=== PATIENT | female | born 1970 | race Two or more races ===

== ENCOUNTER 2016-12-03 20:51 | Emergency (ER) | payer BC ==
[2016-12-03 21:01] VITALS: BP 132/87
[2016-12-03] MEDS ORDERED: Cephalexin 500 MG Cap PO ONE (21:17)
[2016-12-03] MEDS ORDERED: Sulfamethoxazole/Trimethoprim 800-160 MG Tab PO ONE (21:17)
--- NOTE | 2016-12-03 21:24 | EDM.PDOC ---
ED HPI GENERAL MEDICAL PROBLEM - General Chief Complaint: Skin Complaint Stated Complaint: INFECTION UNDER RIGHT ARM PIT Time Seen by Provider: 12/03/16 21:05 Source of Information: Reports: Patient History Limitations: Reports: No Limitations - History of Present Illness INITIAL COMMENTS - FREE TEXT/NARRATIVE: Patient is a 46-year-old female presents ED complaining of a draining open wound to the right armpit. Patient states she has a history of MRSA. States she recently shaved her armpits developed what initially appeared to be a ingrown hair. States today after showering developed drainage from the site. He's been draining ever since. Pain is mild in nature. She denies any fever/chills, nausea /vomiting, or additional lesions to her body. She has not been on any antibiotics recently. Denies any additional complaints. 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: Psychiatric History: Reports: Depression - Infectious Disease History Infectious Disease History: Reports: Chicken Pox, MRSA - Past Surgical History HEENT Surgical History: Reports: Adenoidectomy, Tonsillectomy Social & Family History - Family History Oncologic: Reports: Brain, Breast - Tobacco Use Smoking Status *Q: Never Smoker Years of Tobacco use: 20 Packs/Tins Daily: 0.2 - Recreational Drug Use Recreational Drug Use: No Drug Use in Last 12 Months: No Recreational Drug Type: Reports: Opium - Living Situation & Occupation Living situation: Reports: Occupation: Employed ED ROS GENERAL - Review of Systems Review Of Systems: ROS reveals no pertinent complaints other than HPI. ED EXAM, SKIN/RASH Exam: See Below Exam Limited By: No Limitations General Appearance: Alert, WD/WN, No Apparent Distress Ears: Hearing Grossly Normal Nose: Normal Inspection Throat/Mouth: Normal Voice, No Airway Compromise Neck: Normal Inspection, Supple Respiratory/Chest: No Respiratory Distress, No Accessory Muscle Use Cardiovascular: Normal Peripheral Pulses, Regular Rate, Rhythm Peripheral Pulses: 2+: Radial (R) Extremities: Other (Approximate 3 cm burst 3 cm indurated area with a open area with yellow center. No draining present. Mild erythema around the borders. Pain with palpation. No lymphadenitis present.) Neurological: Alert, Oriented, Normal Cognition, No Motor/Sensory Deficits Psychiatric: Normal Affect, Normal Mood Skin: Warm, Dry Course - Vital Signs Last Recorded V/S: Last Vital Signs Temp 97.9 F 12/03/16 20:59 Pulse 96 12/03/16 20:59 Resp 16 12/03/16 20:59 BP 132/87 12/03/16 20:59 Pulse Ox 96 12/03/16 20:59 - Orders/Labs/Meds Meds: Medications Discontinued Medications Generic Name Dose Route Start Last Admin Trade Name Freq PRN Reason Stop Dose Admin Cephalexin 500 mg 12/03/16 21:17 12/03/16 21:30 Keflex PO 12/03/16 21:18 500 mg ONETIME ONE Administration Cephalexin Confirm 12/03/16 21:44 Keflex Administered 12/03/16 21:45 Dose 500 mg .ROUTE .STK-MED ONE Ondansetron HCl 4 mg 12/03/16 21:38 12/03/16 21:43 Zofran Odt PO 12/03/16 21:39 4 mg ONETIME ONE Administration Trimethoprim/Sulfamethoxazole 1 tab 12/03/16 21:17 12/03/16 21:30 Septra Ds PO 12/03/16 21:18 1 tab ONETIME ONE Administration - Re-Assessments/Exams Free Text/Narrative Re-Assessment/Exam: Ordered Bactrim DS and Keflex by mouth. No purulent drainage to culture. We'll discharge patient home with instructions as documented. Prescriptions provided through [facility]. 12/03/16 21:38 Patient vomited right after taking the antibiotic. Ordered zofran 4mg ODT. Departure - Departure Time of Disposition: 21:21 Disposition: Home, Self-Care 01 Condition: Good Clinical Impression: Furuncle, Abscess, Multiple-resistant Staphylococcus aureus infection - Discharge Information Instructions: Abscess, MRSA Infection, Adult Referrals: Carlee Will PA [Primary Care Provider] - Forms: ED Department Discharge Additional Instructions: As discussed take the full 7 day course of antibiotics as prescribed. Utilize warm compresses 4-6 times daily, 30 minutes in duration, keep area covered with draining. Utilize good hand hygiene with current infection. Follow-up with PCP at conclusion of therapy to ensure resolution. Return to ED for any new or worsening symptoms. Utilize Tylenol and ibuprofen in alternating fashion for pain.
[2016-12-03] MEDS ORDERED: Ondansetron 4 MG Tab.DIS PO ONE (21:38)
[2016-12-03] MEDS ORDERED: Cephalexin 500 MG Cap ONE (21:44)
== END 2016-12-03 21:49 | disposition home or self-care (01) ==
LOC: JD.ED 20:51
DX: L02.423 Furuncle of right upper limb (principal); L02.413 Cutaneous abscess of right upper limb; B95.62 Methicillin resistant Staphylococcus aureus infection as the cause of diseases classified elsewhere; I10 Essential (primary) hypertension; Z87.440 Personal history of urinary (tract) infections; Z98.890 Other specified postprocedural states; F32.9 Major depressive disorder, single episode, unspecified
CPT/HCPCS: 99283; A9270

== ENCOUNTER 2017-02-12 09:36 | Emergency (ER) | payer BC ==
[2017-02-12 10:05] VITALS: BP 143/97
[2017-02-12] MEDS ORDERED: Cephalexin 500 MG Cap PO ONE (10:20)
--- NOTE | 2017-02-12 10:22 | EDM.PDOC ---
ED HPI GENERAL MEDICAL PROBLEM - General Chief Complaint: Genitourinary Problem Stated Complaint: POSS. BLADDER INFECTION Time Seen by Provider: 02/12/17 09:53 Source of Information: Reports: Patient History Limitations: Reports: No Limitations - History of Present Illness INITIAL COMMENTS - FREE TEXT/NARRATIVE: The patient is a 46-year-old female with a chief complaint of dysuria. States that she's had pain with urination for about 2 days. Also has some frequency. She's been taking Pyridium at home. No vomiting. Mild nausea, no abdominal pain. No flank pain. No fever or chills. No additional complaint. 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: Psychiatric History: Reports: Depression - Infectious Disease History Infectious Disease History: Reports: Chicken Pox, MRSA - Past Surgical History HEENT Surgical History: Reports: Adenoidectomy, Tonsillectomy GI Surgical History: Reports: Other (See Below) Social & Family History - Family History Oncologic: Reports: Brain, Breast - Tobacco Use Smoking Status *Q: Unknown Ever Smoked Years of Tobacco use: 20 Packs/Tins Daily: 0.2 - Recreational Drug Use Recreational Drug Use: No Drug Use in Last 12 Months: No Recreational Drug Type: Reports: Opium - Living Situation & Occupation Living situation: Reports: Occupation: Employed ED ROS GENERAL - Review of Systems Review Of Systems: See Below Constitutional: Reports: Malaise. Denies: Fever, Chills HEENT: Reports: No Symptoms Respiratory: Denies: Cough Cardiovascular: Denies: Chest Pain GI/Abdominal: Reports: Nausea. Denies: Abdominal Pain : Reports: Dysuria, Flank Pain ED EXAM, RENAL/ - Physical Exam Exam: See Below Exam Limited By: No Limitations General Appearance: Alert, WD/WN, No Apparent Distress Eye Exam: Bilateral Eye: Normal Inspection Ears: Normal External Exam Nose: Normal Inspection Throat/Mouth: Normal Inspection, Normal Oropharynx, Normal Voice Head: Atraumatic, Normocephalic Neck: Normal Inspection, Supple, Non-Tender, Full Range of Motion Respiratory/Chest: No Respiratory Distress, Lungs Clear, Normal Breath Sounds Cardiovascular: Normal Peripheral Pulses, Regular Rate, Rhythm, No Murmur GI/Abdominal: Soft, Non-Tender, No Distention. No: Rebound Back Exam: Normal Inspection. No: CVA Tenderness (L), CVA Tenderness (R) Neurological: Alert, Oriented, Normal Cognition, No Motor/Sensory Deficits Psychiatric: Normal Affect, Normal Mood Skin Exam: Warm, Dry, Intact, Normal Color, No Rash Course - Vital Signs Last Recorded V/S: Last Vital Signs Temp 36.9 C 02/12/17 10:01 Pulse 102 H 02/12/17 10:01 Resp 18 02/12/17 10:01 BP 143/97 H 02/12/17 10:01 Pulse Ox 88 L 02/12/17 10:21 - Orders/Labs/Meds Labs: Laboratory Tests 02/12/17 Range/Units 09:50 Urine Color Red H (Yellow) Urine Appearance Turbid H (Clear) Urine pH 5.0 (5.0-8.0) Ur Specific [place] 1.015 (1.005-1.030) Urine Protein 3+ H (Negative) Urine Glucose (UA) 1+ H (Negative) Urine Ketones 1+ H (Negative) Urine Occult Blood 2+ H (Negative) Urine Nitrite Positive H (Negative) Urine Bilirubin 2+ H (Negative) Urine Urobilinogen >=8.0 H (0.2-1.0) Ur Leukocyte Esterase 3+ H (Negative) Urine RBC 20-30 H (0-5) /hpf Urine WBC Too numerous to cnt H (0-5) /hpf Ur Epithelial Cells 0-5 (0-5) /hpf Urine Bacteria Many H (FEW) /hpf Urine Mucus Not seen (FEW) /hpf Meds: Medications Discontinued Medications Generic Name Dose Route Start Last Admin Trade Name Freq PRN Reason Stop Dose Admin Cephalexin 500 mg 02/12/17 10:20 02/12/17 10:29 Keflex PO 02/12/17 10:21 500 mg ONETIME ONE Administration - Re-Assessments/Exams Free Text/Narrative Re-Assessment/Exam: 02/12/17 10:28 UA is consistent with infection. She is mildly tachycardic and nauseated, no additional systemic symptoms. She is otherwise healthy. We'll treat with cephalexin. Departure - Departure Time of Disposition: 10:20 Disposition: Home, Self-Care 01 Clinical Impression: Cystitis - Discharge Information Prescriptions: Cephalexin 500 mg PO QID #28 capsule Instructions: Interstitial Cystitis Referrals: Carlee Will PA [Primary Care Provider] - Forms: ED Department Discharge Additional Instructions: 1. Take cephalexin as prescribed 2. Return to the ED if you have fever, worsening abdominal pain, vomiting, or other concerning symptoms 3. Follow up with your regular doctor and/or front counter clerk for further care
== END 2017-02-12 10:32 | disposition home or self-care (01) ==
LOC: JD.ED 09:36
DX: N30.90 Cystitis, unspecified without hematuria (principal); I10 Essential (primary) hypertension; Z79.899 Other long term (current) drug therapy
CPT/HCPCS: 81001; 99283; A9270

== ENCOUNTER 2017-06-04 11:18 | Emergency (ER) | payer BC ==
[2017-06-04 11:26] VITALS: BP 143/82
[2017-06-04] MEDS ORDERED: predniSONE 20 MG Tab PO ONE (12:00)
[2017-06-04] MEDS ORDERED: Cephalexin 500 MG Cap PO ONE (12:00)
[2017-06-04] MEDS ORDERED: diphenhydrAMINE 50 MG Cap PO ONE (12:00)
--- NOTE | 2017-06-04 12:05 | EDM.PDOC ---
ED HPI GENERAL MEDICAL PROBLEM - General Chief Complaint: Skin Complaint Stated Complaint: RASH/SWELLING ON LEGS Time Seen by Provider: 06/04/17 11:49 Source of Information: Reports: Patient History Limitations: Reports: No Limitations - History of Present Illness INITIAL COMMENTS - FREE TEXT/NARRATIVE: Patient is a 46-year-old female with a history of hypertension, depression, and opiod addiction. Patient states she has developed a mild rash to the lower extremities described as pleuritic. Patient states the rash has spread throughout her body worse on her forearms and shins. States over the past few days the rash has grown more red to her lower extremities and forearms from itching. Lower extremities are starting to weep a clear fluid. States she recently changed her laundry detergent. She's been applying hydrocortisone ointment to the affected areas with improvement but ran out of this ointment. In addition she has been placing calamine lotion to the affected extremities which reduces some of the itching. There's been no new medications, lotions, body soaps, or perfumes. She does have a history of MRSA of unknown etiology. Denies any fever , nausea/vomiting, or any additional symptoms. 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 Treatments TIMBER MILL WORKER: bath,calamine lotion - Related Data Allergies Allergy/AdvReac Type Severity Reaction Status Date / Time No Known Allergies Allergy Verified 02/12/17 09:44 Home Meds: Home Meds Buprenorphine HCl/Naloxone HCl [Suboxone 4 mg-1 mg Sl Film] 8 mg TD ASDIRECTED 09/15/15 [History] Enalapril [Vasotec] 5 mg PO DAILY 09/15/15 [History] Venlafaxine [Effexor XR] 150 mg PO DAILY 09/15/15 [History] Cephalexin [Keflex] 500 mg PO Q8H #21 cap 06/04/17 [Rx] Prednisone [IMW: predniSONE] 2 tab PO WITHBREAKFAST #8 tab 06/04/17 [Rx] Past Medical History Cardiovascular History: Reports: Hypertension Genitourinary History: Reports: Pyelonephritis, UTI, 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: Psychiatric History: Reports: Depression - Infectious Disease History Infectious Disease History: Reports: Chicken Pox, MRSA - Past Surgical History HEENT Surgical History: Reports: Adenoidectomy, Tonsillectomy GI Surgical History: Reports: Other (See Below) Social & Family History - Family History Oncologic: Reports: Brain, Breast - Tobacco Use Smoking Status *Q: Former Smoker Years of Tobacco use: 20 Packs/Tins Daily: 0.2 Used Tobacco, but Quit: Yes Month/Year Tobacco Last Used: 1 yr - Caffeine Use Caffeine Use: Reports: Energy Drinks - Recreational Drug Use Recreational Drug Use: No Drug Use in Last 12 Months: No Recreational Drug Type: Reports: Opium - Living Situation & Occupation Living situation: Reports: Occupation: Employed ED ROS GENERAL - Review of Systems Review Of Systems: See Below Constitutional: Denies: Fever, Chills, Malaise, Decreased Appetite HEENT: Reports: No Symptoms Respiratory: Reports: No Symptoms Cardiovascular: Reports: No Symptoms GI/Abdominal: Reports: No Symptoms Musculoskeletal: Reports: No Symptoms Skin: Reports: Rash, Other (erythematous rash to the lower legs bilaterally and forearms with weeping of clear fluids. sharply demarcated with excoriations. Scattered papular rashes red in nature raised with dry skin involving most of her body spairing her face and neck. ) Psychiatric: Reports: No Symptoms Hematologic/Lymphatic: Reports: No Symptoms Immunologic: Reports: No Symptoms ED EXAM, SKIN/RASH Exam: See Below Exam Limited By: No Limitations General Appearance: Alert, WD/WN, No Apparent Distress Eye Exam: Bilateral Eye: Normal Inspection Ears: Hearing Grossly Normal Nose: Normal Inspection Throat/Mouth: Normal Inspection, Normal Oropharynx, Normal Voice, No Airway Compromise Neck: Normal Inspection, Supple Respiratory/Chest: No Respiratory Distress, Lungs Clear, Normal Breath Sounds Cardiovascular: Normal Peripheral Pulses, Regular Rate, Rhythm Peripheral Pulses: 4+: Radial (R) GI/Abdominal: Normal Bowel Sounds, Soft, Non-Tender, No Organomegaly, No Distention Neurological: Alert, Oriented, CN II-XII Intact, Normal Cognition, Normal Gait, No Motor/Sensory Deficits Psychiatric: Normal Affect, Normal Mood Location, Skin: Chest, Abdomen, Back, Upper Extremity, Right, Upper Extremity, Left, Lower Extremity, Right, Lower Extremity, Left, Generalized, Other ( erythematous rash to the lower legs bilaterally and forearms with weeping of clear fluids. sharply demarcated with excoriations. Scattered papular rashes red in nature raised with dry skin involving most of her body spairing her face and neck. ). No: Palms Characteristics: Papular, Confluent, Urticarial, Erythematous Associated features: Inflammation, Weeping, Rough. No: Warmth, Tenderness, Swelling, Induration, Scaling, Crusting Course - Vital Signs Last Recorded V/S: Last Vital Signs Temp 97.6 F 06/04/17 11:25 Pulse 115 H 06/04/17 11:25 Resp 20 06/04/17 11:25 BP 143/82 H 06/04/17 11:25 Pulse Ox 99 06/04/17 11:25 - Orders/Labs/Meds Labs: Laboratory Tests 06/04/17 06/04/17 06/04/17 Range/Units 12:30 12:30 12:32 WBC 6.46 (3.98-10.04) K/mm3 RBC 4.44 (3.98-5.22) M/mm3 Hgb 10.3 L (11.2-15.7) gm/L Hct 33.2 L (34.1-44.9) % MCV 74.8 L (79.4-94.8) fl MCH 23.2 L (25.6-32.2) pg MCHC 31.0 L (32.2-35.5) g/dl RDW Std Deviation 54.7 H (36.4-46.3) fL Plt Count 442 H (182-369) K/mm3 MPV 8.6 L (9.4-12.3) fl Neut % (Auto) 77.2 H (34.0-71.1) % Lymph % (Auto) 12.2 L (19.3-51.7) % [place] % (Auto) 7.6 (4.7-12.5) % Eos % (Auto) 2.2 (0.7-5.8) Baso % (Auto) 0.6 (0.1-1.2) % Neut # (Auto) 4.99 (1.56-6.13) K/mm3 Lymph # (Auto) 0.79 L (1.18-3.74) K/mm3 [place] # (Auto) 0.49 H (0.24-0.36) K/mm3 Eos # (Auto) 0.14 (0.04-0.36) K/mm3 Baso # (Auto) 0.04 (0.01-0.08) K/mm3 Manual Slide Review Abnormal smear Sodium 129 L (136-145) mEq/L Potassium 3.7 (3.5-5.1) mEq/L Chloride 93 L (98-107) mEq/L Carbon Dioxide 25 (21-32) mEq/L Anion Gap 14.7 (5-15) BUN 9 (7-18) mg/dL Creatinine 0.9 (0.55-1.02) mg/dL Est Cr Clr Drug Dosing 58.31 mL/min Estimated GFR (MDRD) > 60 (>60) mL/min BUN/Creatinine Ratio 10.0 L (14-18) Glucose 112 H (74-106) mg/dL Calcium 9.1 (8.5-10.1) mg/dL Total Bilirubin 0.3 (0.2-1.0) mg/dL AST 29 (15-37) U/L ALT 47 (14-59) U/L Alkaline Phosphatase 99 (46-116) U/L C-Reactive Protein 1.4 H* (<1.0) mg/dL Total Protein 7.0 (6.4-8.2) g/dl Albumin 3.2 L (3.4-5.0) g/dl Globulin 3.8 gm/dL Albumin/Globulin Ratio 0.8 L (1-2) Meds: Medications Discontinued Medications Generic Name Dose Route Start Last Admin Trade Name Moisesq PRN Reason Stop Dose Admin Cephalexin 500 mg 06/04/17 12:00 06/04/17 12:16 Keflex PO 06/04/17 12:01 500 mg ONETIME ONE Administration Diphenhydramine HCl 50 mg 06/04/17 12:00 06/04/17 12:16 Benadryl PO 06/04/17 12:01 50 mg ONETIME ONE Administration Prednisone 40 mg 06/04/17 12:00 06/04/17 12:16 Prednisone PO 06/04/17 12:01 40 mg ONETIME ONE Administration - Re-Assessments/Exams Free Text/Narrative Re-Assessment/Exam: It appears patient has a contact dermatitis that spread throughout her body with worsening symptoms noted to her legs and forearms from where she itches quite frequently. Concerns of infection there but at this point I think this is secondary to introduction of new laundry detergent at home. Patient has been placing cortisone ointment on the affected areas with improvement but ran out of this medication. In addition she's been placing calamine lotion on these affected areas. Will obtain just basic labs CBC, chem 14, and CRP. Will start patient on Benadryl and also prednisone at this time. CBC and CMP negative for concerning symptoms. 06/04/17 13:32 Reassessment, patient states the redness and itching are improving. We'll discharge patient home. Return precautions discussed with patient. Departure - Departure Time of Disposition: 13:32 Disposition: Home, Self-Care 01 Condition: Good Clinical Impression: Contact dermatitis Qualifiers: Contact dermatitis type: irritant Contact dermatitis trigger: detergents Qualified Code(s): L24.0 - Irritant contact dermatitis due to detergents - Discharge Information Prescriptions: Cephalexin [Keflex] 500 mg PO Q8H #21 cap Prednisone [IMW: predniSONE] 2 tab PO WITHBREAKFAST #8 tab Instructions: Contact Dermatitis, [id number] Referrals: PCP,None [Primary Care Provider] - Forms: ED Department Discharge Additional Instructions: Suspect cause of skin irritation is the new laundry detergent. Wash all clothes in previously old detergent. Apply heavy coat of aquaphor with OTC hydrocortisone ointment to the lower legs and forearms. refrain from itching. Take prednisone 40mg everydayfor the next 4 days. Benadryl 25 to 50mg every 6 hrs prn itching. Suggest taking pepcid 40mg everyday as well for the next 5 days. Take Keflex as instructed prophylactic for infection. Follow up with her PCP in the next 2-3 days. Return to the ED if you develop any new or worsening symptoms.
== END 2017-06-04 14:02 | disposition home or self-care (01) ==
LOC: JD.ED 11:18
DX: L24.0 Irritant contact dermatitis due to detergents (principal); I10 Essential (primary) hypertension; F32.9 Major depressive disorder, single episode, unspecified; Z79.899 Other long term (current) drug therapy; Z87.440 Personal history of urinary (tract) infections; Z86.14 Personal history of Methicillin resistant Staphylococcus aureus infection; Z86.19 Personal history of other infectious and parasitic diseases; Z87.891 Personal history of nicotine dependence
CPT/HCPCS: 36415; 80053; 85025; 86140; 99283; A9270

== ENCOUNTER 2020-04-09 12:35 | Emergency (ER) | payer BC, MEDICAID ==
[2020-04-09] MEDS ORDERED: Sodium Chloride 0.9% 10 ML Syringe FLUSH PRN (13:11)
[2020-04-09] MEDS ORDERED: Ondansetron 4 MG/2 ML SDV IVPUSH ONE (13:14)
[2020-04-09] MEDS ORDERED: Sodium Chloride 0.9% 1,000 ML IV ONE (13:14)
--- NOTE | 2020-04-09 13:18 | EDM.PDOCBH ---
ED HPI GENERAL MEDICAL PROBLEM - General Chief Complaint: Drug or Alcohol Abuse Stated Complaint: ALCOHOL DETOX Time Seen by Provider: 04/09/20 12:56 Source of Information: Reports: Patient, RN Notes Reviewed History Limitations: Reports: No Limitations - History of Present Illness INITIAL COMMENTS - FREE TEXT/NARRATIVE: Patient is a 49-year-old female who presents to the ED for the evaluation of her alcohol abuse. Patient notes that she is a longtime alcoholic. She does note however for the last month, she has been kind of out of control. She states that for the last several years she has been having issues where she is drinking on and off, and she is up to the point where she will drink a 375 mL container of vodka daily. Patient notes that she did had a period of sobriety of roughly 15 years, when she had children of school age in the house. Patient notes that her last alcohol intake was at around midnight last night. Patient states she is very open to treatment at this time as she is worried about her health, and she wants to be around for her family. She is not aware of any alcohol withdrawal seizures that she has ever had. She takes venlafaxine, enalapril, and recently diagnosed with a UTI and is on ciprofloxacin. Patient states she feels dehydrated, she is slightly dizzy and lightheaded. She had no fevers or chills, cough or shortness of breath, nausea/vomiting/diarrhea. Patient notes that she has been at [facility] in the past and she believes this was only a couple months ago. She did try to get a hold of them for today's purposes ho wever she was told that they were full. Generalized Pain Score (Numeric/FACES): 5 - Related Data Allergies Allergy/AdvReac Type Severity Reaction Status Date / Time No Known Allergies Allergy Verified 02/12/17 09:44 Home Meds: Home Meds Buprenorphine HCl/Naloxone HCl [Suboxone 4 mg-1 mg Sl Film] 8 mg TD ASDIRECTED 09/15/15 [History] Venlafaxine [Effexor XR] 150 mg PO DAILY 09/15/15 [History] Enalapril/Hydrochlorothiazide [Enalapril-HCTZ 5-12.5 MG] 1 tab PO DAILY 02/25/18 [History] LORazepam [Ativan] 1 mg PO ASDIRECTED #12 tab 04/09/20 [Rx] Ondansetron [Zofran ODT] 4 mg PO Q8H PRN #15 tab.dis 04/09/20 [Rx] Past Medical History Cardiovascular History: Reports: Hypertension Genitourinary History: Reports: Pyelonephritis, UTI, 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 ED EXAM, BEHAVIORAL HEALTH - Physical Exam Exam: See Below Exam Limited By: No Limitations General Appearance: Alert, WD/WN, No Apparent Distress Respiratory/Chest: No Respiratory Distress, Lungs Clear, Normal Breath Sounds, No Accessory Muscle Use, Chest Non-Tender Cardiovascular: Normal Peripheral Pulses, Regular Rate, Rhythm, No Edema GI/Abdominal: Normal Bowel Sounds, Soft, Non-Tender, No Distention, No Mass Extremities: Normal Inspection, Normal Capillary Refill Neurological: Alert, Normal Mood/Affect, Normal Cognition, Normal Reflexes, No Motor/Sensory Deficits Psychiatric: Alert, Normal Affect, Normal Cognition, Normal Mood, Oriented Skin Exam: Warm, Dry, Intact, Normal color, No rash #1 Interpretation EKG Date: 04/09/20 Time: 13:41 Rhythm: NSR (sinus tach) Rate (Beats/Min): 109 [place]: Normal P-Wave: Present QRS: Normal ST-T: Normal QT: Normal Comparison: NA - No Prior EKG EKG Interpretation Comments: No obvious ischemia or acute ST changes noted, reviewed by myself and Dr. Marquez. COURSE, BEHAVIORAL HEALTH COMP - Course Vital Signs: Last Vital Signs Temp 97.6 F 04/09/20 13:53 Pulse 104 H 04/09/20 13:53 Resp 20 04/09/20 13:53 BP 137/96 H 04/09/20 13:53 Pulse Ox 96 04/09/20 13:53 Orders, Labs, Meds: Active Orders 24 hr Category Date Time Status EKG Documentation Completion [RC] STAT Care 04/09/20 13:10 Active Peripheral IV Care [RC] . DIRECTED Care 04/09/20 13:12 Active Sodium Chloride 0.9% [Saline Flush] Med 04/09/20 13:11 Active 10 ml FLUSH ASDIRECTED PRN Peripheral IV Insertion Adult [OM.PC] Routine Oth 04/09/20 13:11 Ordered Medication Orders Sodium Chloride (Saline Flush) 10 ml FLUSH ASDIRECTED PRN PRN Reason: Keep Vein Open Last Admin: 04/09/20 14:04 Dose: 10 ml Documented by: KATHERINE Laboratory Tests 04/09/20 04/09/20 04/09/20 Range/Units 13:18 13:18 15:16 WBC 6.76 (3.98-10.04) K/mm3 RBC 4.48 (3.98-5.22) M/mm3 Hgb 12.9 (11.2-15.7) gm/dl Hct 38.9 (34.1-44.9) % MCV 86.8 (79.4-94.8) fl MCH 28.8 (25.6-32.2) pg MCHC 33.2 (32.2-35.5) g/dl RDW Std Deviation 45.5 (36.4-46.3) fL Plt Count 284 (182-369) K/mm3 MPV 8.9 L (9.4-12.3) fl Neutrophils % (Manual) 57 (40-60) % Band Neutrophils % 0 (0-10) % Lymphocytes % (Manual) 32 (20-40) % Atypical Lymphs % 0 % Monocytes % (Manual) 9 (2-10) % Eosinophils % (Manual) 1 (0.7-5.8) % Basophils % (Manual) 1 (0.1-1.2) Platelet Estimate Adequate RBC Morph Comment Normal Sodium 139 (136-145) mEq/L Potassium 3.7 (3.5-5.1) mEq/L Chloride 101 (98-107) mEq/L Carbon Dioxide 29 (21-32) mEq/L Anion Gap 12.7 (5-15) BUN 24 H (7-18) mg/dL Creatinine 0.8 (0.55-1.02) mg/dL Est Cr Clr Drug Dosing 60.43 mL/min Estimated GFR (MDRD) > 60 (>60) mL/min BUN/Creatinine Ratio 30.0 H (14-18) Glucose 98 (74-106) mg/dL Calcium 8.7 (8.5-10.1) mg/dL Total Bilirubin 0.4 (0.2-1.0) mg/dL AST 36 (15-37) U/L ALT 36 (14-59) U/L Alkaline Phosphatase 79 (46-116) U/L Total Protein 7.1 (6.4-8.2) g/dl Albumin 3.6 (3.4-5.0) g/dl Globulin 3.5 gm/dL Albumin/Globulin Ratio 1.0 (1-2) TSH 3rd Generation 0.461 (0.358-3.74) uIU/mL Urine Opiates Screen Negative (YMSMRW=110) Ur Buprenorphine Scrn Presumptive positive (CUTOFF=10) Ur Oxycodone Screen Negative (ATU8NK=438) Urine Methadone Screen Negative (KNOGTX=074) Ur Propoxyphene Screen Negative (KEBBDK=414) Ur Barbiturates Screen Negative (RSABWP=443) Ur Tricyclics Screen Negative (IQOIIE=819) Ur Phencyclidine Scrn Negative (CUTOFF=25) Ur Amphetamine Screen Negative (QQWTOQ=338) U Methamphetamines Scrn Negative (ADTYBD=371) U Benzodiazepines Scrn Negative (BVMNSA=640) U Cocaine Metab Screen Negative (XWQCOR=000) U Marijuana (THC) Screen Negative (CUTOFF=50) Ethyl Alcohol 0.20 (0.00) gm% Medications Generic Name Dose Route Start Last Admin Trade Name Freq PRN Reason Stop Dose Admin Sodium Chloride 10 ml 04/09/20 13:11 04/09/20 14:04 Saline Flush FLUSH 10 ml ASDIRECTED PRN Administration Keep Vein Open Discontinued Medications Generic Name Dose Route Start Last Admin Trade Name Freq PRN Reason Stop Dose Admin Sodium Chloride 1,000 mls @ 500 mls/hr 04/09/20 13:14 04/09/20 13:39 Normal Saline IV 04/09/20 15:13 500 mls/hr ONETIME ONE Administration Ondansetron HCl 4 mg 04/09/20 13:14 04/09/20 13:39 Zofran IVPUSH 04/09/20 13:15 4 mg ONETIME ONE Administration Discharge vs Psych Eval/Treatment:: 04/09/20 13:18 Patient presents to the ED for the evaluation of her alcohol abuse. I do believe she is at risk for alcohol detox, but is at more of a low risk for alcohol detox seizures. Patient has no baseline tremors on initial exam, but states she feels nauseated and dehydrated. For today's purposes we will get some baseline labs, give her some fluids and nausea meds. I have been in contact with [facility] for outpatient therapy, they will be up to discuss options with the patient. 04/09/20 14:14 Patient's labs have resulted, CBC and CMP are essentially unremarkable. Patient blood alcohol level 0.20. TSH is also within normal limits. [facility] staff was in to talk with the patient, and do believe she is appropriate for treatment. She will consult nursing staff at [facility], and get someone to pick her up once we get the urine drug screen resulted. 04/09/20 15:49 Drug screen shows presumptive positive for buprenorphine, but she does take Suboxone therapy compatible with this. Patient be discharged into the care of [facility]. Departure - Departure Time of Disposition: 15:49 Disposition: DC/Tfer to Other 70 Condition: Good Clinical Impression: Alcohol abuse - Discharge Information *PRESCRIPTION DRUG MONITORING PROGRAM REVIEWED*: No *COPY OF PRESCRIPTION DRUG MONITORING REPORT IN PATIENT CLAY: No Prescriptions: LORazepam [Ativan] 1 mg PO ASDIRECTED #12 tab Ondansetron [Zofran ODT] 4 mg PO Q8H PRN #15 tab.dis PRN Reason: Nausea Instructions: Alcohol Abuse and Dependence Information, Adult Referrals: Rupali Campos NP [Primary Care Provider] - Forms: ED Department Discharge Additional Instructions: You were evaluated in the ER today for your alcohol abuse. Labs were drawn, and everything was within normal limits, your kidneys show no damage, your liver shows no damage which is good news. You were given IV fluids, and IV nausea meds while you were in the ER. Your urine drug screen showed that you were positive for buprenorphine, but you also take Suboxone so that is why this would be positive. Please continue to take all other previous medications as previously prescribed. You were given a prescription for Ativan, you will need to take 1 tablet 3 times a day for 2 days, 1 tablet 2 times a day x2 days, then 1 tablet daily x2 days. Zofran dosing will be 1 tablet dissolvable under your tongue every 8 hours for nausea until gone. You will be discharged into the care [facility] to participate in their alcohol abuse services. Sepsis Event Note (ED) - Focused Exam Vital Signs: Vital Signs Temp Pulse Resp BP Pulse Ox 04/09/20 13:53 97.6 F 104 H 20 137/96 H 96 04/09/20 13:43 109 H 18 141/92 H 100 - My Orders Last 24 Hours: My Active Orders 04/09/20 13:10 EKG Documentation Completion [RC] STAT 04/09/20 13:11 Sodium Chloride 0.9% [Saline Flush] 10 ml FLUSH ASDIRECTED PRN Peripheral IV Insertion Adult [OM.PC] Routine 04/09/20 13:12 Peripheral IV Care [RC] . DIRECTED - Assessment/Plan Last 24 Hours: My Active Orders 04/09/20 13:10 EKG Documentation Completion [RC] STAT 04/09/20 13:11 Sodium Chloride 0.9% [Saline Flush] 10 ml FLUSH ASDIRECTED PRN Peripheral IV Insertion Adult [OM.PC] Routine 04/09/20 13:12 Peripheral IV Care [RC] . DIRECTED
[2020-04-09 13:55] VITALS: BP 137/96; PULSE 104
== END 2020-04-09 16:30 | disposition other institution (70) ==
LOC: JD.ED 12:35
DX: F10.20 Alcohol dependence, uncomplicated (principal); I10 Essential (primary) hypertension; Z79.899 Other long term (current) drug therapy; Y90.7 Blood alcohol level of 200-239 mg/100 ml
CPT/HCPCS: 36415; 80053; 80179; 80306; 84443; 85007; 85027; 93005; 96374; 99285; J2405; J7030; 93010; 99284

== ENCOUNTER 2020-04-29 18:51 | Emergency (ER) | payer BC ==
--- NOTE | 2020-04-29 19:16 | EDM.PDOC ---
ED HPI GENERAL MEDICAL PROBLEM - General Chief Complaint: Drug or Alcohol Abuse Stated Complaint: HEALTH CHECK Time Seen by Provider: 04/29/20 19:15 - History of Present Illness INITIAL COMMENTS - FREE TEXT/NARRATIVE: 49-year-old female presents the emergency room with alcoholism. The patient has been dry for a while however has been drinking pretty steadily for the last couple of weeks. Apparently they have discussed this [facility] and they admit to having a bed for her she needs to come here and get cleared. Patient denies any other problems at this point. The patient's been couple weeks it the [facility] and did pretty well after this until she relapsed. Patient denies any other problems at this time no significant nausea vomiting breathing difficulty shortness of breath chest pain chest pressure or other signs of illness. He does take her antidepressant. And she is on Suboxone. 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: Psychiatric History: Reports: Addiction, Depression Endocrine/Metabolic History: Reports: Obesity/BMI 30+ - Infectious Disease History Infectious Disease History: Reports: Chicken Pox - Past Surgical History HEENT Surgical History: Reports: Adenoidectomy, Tonsillectomy GI Surgical History: Reports: Other (See Below) Other GI Surgeries/Procedures: Rouex on Y stomach surgery Social & Family History - Family History Oncologic: Reports: Brain, Breast - Caffeine Use Caffeine Use: Reports: None - Recreational Drug Use Recreational Drug Use: No - Living Situation & Occupation Living situation: Reports: Occupation: Employed ED ROS GENERAL - Review of Systems Review Of Systems: See Below Constitutional: Reports: No Symptoms HEENT: Reports: No Symptoms, Vertigo Cardiovascular: Reports: No Symptoms Endocrine: Reports: No Symptoms GI/Abdominal: Reports: No Symptoms : Reports: No Symptoms Musculoskeletal: Reports: No Symptoms Neurological: Reports: No Symptoms Psychiatric: Reports: No Symptoms Hematologic/Lymphatic: Reports: No Symptoms Immunologic: Reports: No Symptoms ED EXAM, GENERAL - Physical Exam Exam: See Below Exam Limited By: No Limitations General Appearance: Alert, No Apparent Distress Eye Exam: Bilateral Eye: Normal Inspection Ears: Normal External Exam, Normal Canal, Hearing Grossly Normal, Normal TMs Nose: Normal Inspection, Normal Mucosa, No Blood Throat/Mouth: Normal Inspection, Normal Lips, Normal Teeth, Normal Gums, Normal Oropharynx, Normal Voice, No Airway Compromise Head: Atraumatic, Normocephalic Neck: Normal Inspection, Supple, Non-Tender, Full Range of Motion Respiratory/Chest: No Respiratory Distress, Lungs Clear, Normal Breath Sounds, No Accessory Muscle Use, Chest Non-Tender Cardiovascular: Normal Peripheral Pulses, Regular Rate, Rhythm, No Edema, No Gallop, No JVD, No Murmur, No Rub GI/Abdominal: Normal Bowel Sounds, Soft, Non-Tender Back Exam: Normal Inspection. No: CVA Tenderness (L), CVA Tenderness (R) Extremities: Normal Inspection, No Pedal Edema Neurological: Alert, Oriented, Normal Cognition Course - Vital Signs Last Recorded V/S: Last Vital Signs Temp 36.5 C 04/29/20 18:57 Pulse 92 04/29/20 23:17 Resp 19 04/29/20 23:17 BP 128/85 04/29/20 23:17 Pulse Ox 94 L 04/29/20 23:17 - Orders/Labs/Meds Orders: Active Orders 24 hr Category Date Time Status CULTURE URINE [RM] Stat Lab 04/29/20 19:22 Received LORazepam [Ativan] Med 04/29/20 23:25 Once 0.5 mg PO ONETIME ONE Labs: Laboratory Tests 04/29/20 04/29/20 04/29/20 Range/Units 19:22 19:23 19:35 WBC 7.15 (3.98-10.04) K/mm3 RBC 4.38 (3.98-5.22) M/mm3 Hgb 12.4 (11.2-15.7) gm/dl Hct 38.8 (34.1-44.9) % MCV 88.6 (79.4-94.8) fl MCH 28.3 (25.6-32.2) pg MCHC 32.0 L (32.2-35.5) g/dl RDW Std Deviation 50.1 H (36.4-46.3) fL Plt Count 369 D (182-369) K/mm3 MPV 9.9 (9.4-12.3) fl Neut % (Auto) 47.7 (34.0-71.1) % Lymph % (Auto) 45.3 (19.3-51.7) % Pender % (Auto) 4.1 L (4.7-12.5) % Eos % (Auto) 1.5 (0.7-5.8) Baso % (Auto) 1.1 (0.1-1.2) % Neut # (Auto) 3.41 (1.56-6.13) K/mm3 Lymph # (Auto) 3.24 (1.18-3.74) K/mm3 Pender # (Auto) 0.29 (0.24-0.36) K/mm3 Eos # (Auto) 0.11 (0.04-0.36) K/mm3 Baso # (Auto) 0.08 (0.01-0.08) K/mm3 PT (9.7-12.0) SECONDS INR Sodium (136-145) mEq/L Potassium (3.5-5.1) mEq/L Chloride (98-107) mEq/L Carbon Dioxide (21-32) mEq/L Anion Gap (5-15) BUN (7-18) mg/dL Creatinine (0.55-1.02) mg/dL Est Cr Clr Drug Dosing mL/min Estimated GFR (MDRD) (>60) mL/min BUN/Creatinine Ratio (14-18) Glucose (74-106) mg/dL Calcium (8.5-10.1) mg/dL Magnesium (1.8-2.4) mg/dl Total Bilirubin (0.2-1.0) mg/dL AST (15-37) U/L ALT (14-59) U/L Alkaline Phosphatase (46-116) U/L Total Protein (6.4-8.2) g/dl Albumin (3.4-5.0) g/dl Globulin gm/dL Albumin/Globulin Ratio (1-2) TSH 3rd Generation (0.358-3.74) uIU/mL Urine Color Yellow (Yellow) Urine Appearance Clear (Clear) Urine pH 6.5 (5.0-8.0) Ur Specific [place] 1.015 (1.005-1.030) Urine Protein Negative (Negative) Urine Glucose (UA) Negative (Negative) Urine Ketones Negative (Negative) Urine Occult Blood Trace-intact H (Negative) Urine Nitrite Negative (Negative) Urine Bilirubin Negative (Negative) Urine Urobilinogen 0.2 (0.2-1.0) Ur Leukocyte Esterase 1+ H (Negative) Urine RBC 0-5 (0-5) /hpf Urine WBC 10-20 H (0-5) /hpf Ur Squamous Epith Cells 0-5 (0-5) /hpf Urine Bacteria Few (FEW) /hpf Urine Mucus Not seen (FEW) /hpf Salicylates (2.8-20) mg/dL Urine Opiates Screen Negative (AYXVHH=167) Ur Buprenorphine Scrn Presumptive positive (CUTOFF=10) Ur Oxycodone Screen Negative (UDA0NH=658) Urine Methadone Screen Negative (LUVBIJ=839) Ur Propoxyphene Screen Negative (PGPMYI=252) Acetaminophen (10-30) ug/mL Ur Barbiturates Screen Negative (ELNHBD=349) Ur Tricyclics Screen Negative (QISEQD=155) Ur Phencyclidine Scrn Negative (CUTOFF=25) Ur Amphetamine Screen Negative (PABQMD=385) U Methamphetamines Scrn Negative (NJSSBF=055) U Benzodiazepines Scrn Negative (TZLIJG=575) U Cocaine Metab Screen Negative (BCQCMV=101) U Marijuana (THC) Screen Negative (CUTOFF=50) Ethyl Alcohol (0.00) gm% 04/29/20 04/29/20 04/29/20 Range/Units 19:35 19:35 19:35 WBC (3.98-10.04) K/mm3 RBC (3.98-5.22) M/mm3 Hgb (11.2-15.7) gm/dl Hct (34.1-44.9) % MCV (79.4-94.8) fl MCH (25.6-32.2) pg MCHC (32.2-35.5) g/dl RDW Std Deviation (36.4-46.3) fL Plt Count (182-369) K/mm3 MPV (9.4-12.3) fl Neut % (Auto) (34.0-71.1) % Lymph % (Auto) (19.3-51.7) % Pender % (Auto) (4.7-12.5) % Eos % (Auto) (0.7-5.8) Baso % (Auto) (0.1-1.2) % Neut # (Auto) (1.56-6.13) K/mm3 Lymph # (Auto) (1.18-3.74) K/mm3 Pender # (Auto) (0.24-0.36) K/mm3 Eos # (Auto) (0.04-0.36) K/mm3 Baso # (Auto) (0.01-0.08) K/mm3 PT 9.6 L (9.7-12.0) SECONDS INR < 0.93 Sodium 145 (136-145) mEq/L Potassium 3.3 L (3.5-5.1) mEq/L Chloride 105 (98-107) mEq/L Carbon Dioxide 29 (21-32) mEq/L Anion Gap 14.3 (5-15) BUN 19 H (7-18) mg/dL Creatinine 0.9 (0.55-1.02) mg/dL Est Cr Clr Drug Dosing 53.71 mL/min Estimated GFR (MDRD) > 60 (>60) mL/min BUN/Creatinine Ratio 21.1 H (14-18) Glucose 102 (74-106) mg/dL Calcium 8.4 L (8.5-10.1) mg/dL Magnesium (1.8-2.4) mg/dl Total Bilirubin 0.2 (0.2-1.0) mg/dL AST 35 (15-37) U/L ALT 37 (14-59) U/L Alkaline Phosphatase 105 (46-116) U/L Total Protein 6.6 (6.4-8.2) g/dl Albumin 3.2 L (3.4-5.0) g/dl Globulin 3.4 gm/dL Albumin/Globulin Ratio 0.9 L (1-2) TSH 3rd Generation 1.370 (0.358-3.74) uIU/mL Urine Color (Yellow) Urine Appearance (Clear) Urine pH (5.0-8.0) Ur Specific [place] (1.005-1.030) Urine Protein (Negative) Urine Glucose (UA) (Negative) Urine Ketones (Negative) Urine Occult Blood (Negative) Urine Nitrite (Negative) Urine Bilirubin (Negative) Urine Urobilinogen (0.2-1.0) Ur Leukocyte Esterase (Negative) Urine RBC (0-5) /hpf Urine WBC (0-5) /hpf Ur Squamous Epith Cells (0-5) /hpf Urine Bacteria (FEW) /hpf Urine Mucus (FEW) /hpf Salicylates 0.4 L (2.8-20) mg/dL Urine Opiates Screen (JHLTCN=155) Ur Buprenorphine Scrn (CUTOFF=10) Ur Oxycodone Screen (YQG3DQ=515) Urine Methadone Screen (UTRWNP=624) Ur Propoxyphene Screen (KWBILA=538) Acetaminophen 0 L (10-30) ug/mL Ur Barbiturates Screen (KKBRNK=900) Ur Tricyclics Screen (PAEBWQ=683) Ur Phencyclidine Scrn (CUTOFF=25) Ur Amphetamine Screen (USGYEC=467) U Methamphetamines Scrn (LQFQDC=661) U Benzodiazepines Scrn (HEHKQU=421) U Cocaine Metab Screen (QQKMAD=566) U Marijuana (THC) Screen (CUTOFF=50) Ethyl Alcohol 0.32 (0.00) gm% 04/29/20 04/29/20 Range/Units 19:35 22:59 WBC (3.98-10.04) K/mm3 RBC (3.98-5.22) M/mm3 Hgb (11.2-15.7) gm/dl Hct (34.1-44.9) % MCV (79.4-94.8) fl MCH (25.6-32.2) pg MCHC (32.2-35.5) g/dl RDW Std Deviation (36.4-46.3) fL Plt Count (182-369) K/mm3 MPV (9.4-12.3) fl Neut % (Auto) (34.0-71.1) % Lymph % (Auto) (19.3-51.7) % Pender % (Auto) (4.7-12.5) % Eos % (Auto) (0.7-5.8) Baso % (Auto) (0.1-1.2) % Neut # (Auto) (1.56-6.13) K/mm3 Lymph # (Auto) (1.18-3.74) K/mm3 Pender # (Auto) (0.24-0.36) K/mm3 Eos # (Auto) (0.04-0.36) K/mm3 Baso # (Auto) (0.01-0.08) K/mm3 PT (9.7-12.0) SECONDS INR Sodium (136-145) mEq/L Potassium (3.5-5.1) mEq/L Chloride (98-107) mEq/L Carbon Dioxide (21-32) mEq/L Anion Gap (5-15) BUN (7-18) mg/dL Creatinine (0.55-1.02) mg/dL Est Cr Clr Drug Dosing mL/min Estimated GFR (MDRD) (>60) mL/min BUN/Creatinine Ratio (14-18) Glucose (74-106) mg/dL Calcium (8.5-10.1) mg/dL Magnesium 2.1 (1.8-2.4) mg/dl Total Bilirubin (0.2-1.0) mg/dL AST (15-37) U/L ALT (14-59) U/L Alkaline Phosphatase (46-116) U/L Total Protein (6.4-8.2) g/dl Albumin (3.4-5.0) g/dl Globulin gm/dL Albumin/Globulin Ratio (1-2) TSH 3rd Generation (0.358-3.74) uIU/mL Urine Color (Yellow) Urine Appearance (Clear) Urine pH (5.0-8.0) Ur Specific [place] (1.005-1.030) Urine Protein (Negative) Urine Glucose (UA) (Negative) Urine Ketones (Negative) Urine Occult Blood (Negative) Urine Nitrite (Negative) Urine Bilirubin (Negative) Urine Urobilinogen (0.2-1.0) Ur Leukocyte Esterase (Negative) Urine RBC (0-5) /hpf Urine WBC (0-5) /hpf Ur Squamous Epith Cells (0-5) /hpf Urine Bacteria (FEW) /hpf Urine Mucus (FEW) /hpf Salicylates (2.8-20) mg/dL Urine Opiates Screen (PHEGHT=853) Ur Buprenorphine Scrn (CUTOFF=10) Ur Oxycodone Screen (AJN0XZ=250) Urine Methadone Screen (INOAQZ=157) Ur Propoxyphene Screen (IYTRAQ=528) Acetaminophen (10-30) ug/mL Ur Barbiturates Screen (WEBBXK=618) Ur Tricyclics Screen (HMFLDR=369) Ur Phencyclidine Scrn (CUTOFF=25) Ur Amphetamine Screen (NLDKUM=396) U Methamphetamines Scrn (XHEJLF=777) U Benzodiazepines Scrn (YCAKFJ=878) U Cocaine Metab Screen (EPCSJT=126) U Marijuana (THC) Screen (CUTOFF=50) Ethyl Alcohol 0.18 (0.00) gm% Meds: Medications Discontinued Medications Generic Name Dose Route Start Last Admin Trade Name Freq PRN Reason Stop Dose Admin Lactated Ringer's 1,000 mls @ 999 mls/hr 04/29/20 19:24 04/29/20 20:11 Ringers, Lactated IV 04/29/20 20:24 999 mls/hr .BOLUS ONE Administration Lactated Ringer's 1,000 mls @ 999 mls/hr 04/29/20 21:32 04/29/20 21:37 Ringers, Lactated IV 04/29/20 22:32 999 mls/hr .BOLUS ONE Administration Ondansetron HCl 4 mg 04/29/20 19:24 04/29/20 20:11 Zofran IVPUSH 04/29/20 19:25 4 mg ONETIME ONE Administration Potassium Chloride 40 meq 04/29/20 20:38 04/29/20 20:49 Klor-Con M20 PO 04/29/20 20:39 40 meq ONETIME ONE Administration - Re-Assessments/Exams Free Text/Narrative Re-Assessment/Exam: 04/29/20 21:13 Tried to call the [facility] bed coordinator however there is a phone issue apparently this was to try and call me back. Departure - Departure Time of Disposition: 23:26 Disposition: Home, Self-Care 01 Clinical Impression: Alcoholism - Discharge Information Referrals: Rupali Campos NP [Primary Care Provider] - Forms: ED Department Discharge Additional Instructions: Return to the emergency room with any questions problems or worsening symptoms. Go straight to [facility]. You will take Ativan 1 mg every 8 hours for 4 days. And have given you some potassium you take 1 of these twice daily for 2 days to restore your potassium deficit. You should start on a vitamin with folic acid take 1 daily. Sepsis Event Note (ED) - Evaluation Sepsis Screening Result: No Definite Risk - Focused Exam Vital Signs: Vital Signs Temp Pulse Resp BP Pulse Ox 04/29/20 23:17 92 19 128/85 94 L 04/29/20 18:57 36.5 C 105 H 18 132/78 94 L - My Orders Last 24 Hours: My Active Orders 04/29/20 19:22 CULTURE URINE [RM] Stat 04/29/20 23:25 LORazepam [Ativan] 0.5 mg PO ONETIME ONE - Assessment/Plan Last 24 Hours: My Active Orders 04/29/20 19:22 CULTURE URINE [RM] Stat 04/29/20 23:25 LORazepam [Ativan] 0.5 mg PO ONETIME ONE
[2020-04-29] MEDS ORDERED: Lactated Ringers 1,000 ML IV ONE ×2 (19:24→21:32)
[2020-04-29] MEDS ORDERED: Ondansetron 4 MG/2 ML SDV IVPUSH ONE (19:24)
[2020-04-29 20:16] LABS: ACETAMINOPHEN 0 ug/mL (10-30)
[2020-04-29] MEDS ORDERED: Potassium Chloride 20 MEQ Tab.ER PO ONE (20:38)
[2020-04-29] MEDS ORDERED: LORazepam 0.5 MG Tab PO ONE (23:25)
[2020-04-29 23:58] VITALS: BP 124/90; PULSE 91
== END 2020-04-29 23:50 | disposition home or self-care (01) ==
LOC: JD.ED 18:51
DX: F10.20 Alcohol dependence, uncomplicated (principal); I10 Essential (primary) hypertension; Y90.6 Blood alcohol level of 120-199 mg/100 ml; E66.9 Obesity, unspecified; Z68.31 Body mass index [BMI] 31.0-31.9, adult; Z79.899 Other long term (current) drug therapy
CPT/HCPCS: 36415; 80053; 80143; 80179; 80306; 80307; 81001; 83735; 84443; 85025; 85610; 87086; 87088; 87181; 87184; 87186; 96374; 99284; A9270; J2405; J7120; 99283

== ENCOUNTER 2020-09-19 07:23 | Emergency (ER) | payer BC ==
[2020-09-19 07:34] VITALS: BP 147/96; PULSE 106
[2020-09-19] MEDS ORDERED: cefTRIAXone 1 GM, Lidocaine 1% 2.1 ML IM ONE ×2 (08:07)
--- NOTE | 2020-09-19 08:10 | EDM.PDOC ---
ED HPI GENERAL MEDICAL PROBLEM - General Chief Complaint: Genitourinary Problem Stated Complaint: POSS UTI Time Seen by Provider: 09/19/20 07:34 Source of Information: Reports: Patient History Limitations: Reports: No Limitations - History of Present Illness INITIAL COMMENTS - FREE TEXT/NARRATIVE: The patient presents with a possible UTI. She has a history of many UTIs. She had bladder lift surgery a few years ago. She has some lower abdominal pain, dysuria and frequency. This has been going on for about a week and a half. Onset: Gradual Duration: Week(s): Location: Reports: Abdomen Quality: Reports: Ache Severity: Mild Improves with: Reports: None Worsens with: Reports: None Associated Symptoms: Denies: Chest Pain, Cough, Fever/Chills, Headaches, Nausea/Vomiting, Shortness of Breath Bladder Pain Score (Numeric/FACES): 6 - Related Data Allergies Allergy/AdvReac Type Severity Reaction Status Date / Time No Known Allergies Allergy Verified 09/19/20 07:31 Home Meds: Home Meds buPROPion [Wellbutrin] 75 mg PO BID 09/19/20 [History] cephALEXin [Keflex] 500 mg PO BID #10 cap 09/19/20 [Rx] Past Medical History Cardiovascular History: Reports: Hypertension Genitourinary History: Reports: Pyelonephritis, UTI, Recurrent 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 FELLOW History: Reports: Psychiatric History: Reports: Addiction, Depression Endocrine/Metabolic History: Reports: Obesity/BMI 30+ - Infectious Disease History Infectious Disease History: Reports: Chicken Pox - Past Surgical History HEENT Surgical History: Reports: Adenoidectomy, Tonsillectomy GI Surgical History: Reports: Other (See Below) Other GI Surgeries/Procedures: Rouex on Y stomach surgery Social & Family History - Family History Oncologic: Reports: Brain, Breast - Tobacco Use Tobacco Use Status *Q: Never Tobacco User - Caffeine Use Caffeine Use: Reports: Coffee, Energy Drinks, Soda, Tea - Recreational Drug Use Recreational Drug Use: No - Living Situation & Occupation Living situation: Reports: Occupation: Employed ED ROS GENERAL - Review of Systems Review Of Systems: See Below Constitutional: Reports: No Symptoms HEENT: Reports: No Symptoms Respiratory: Reports: No Symptoms Cardiovascular: Reports: No Symptoms Endocrine: Reports: No Symptoms GI/Abdominal: Reports: Abdominal Pain. Denies: Diarrhea, Nausea, Vomiting : Reports: Dysuria, Frequency ED EXAM, GI/ABD - Physical Exam Exam: See Below Exam Limited By: No Limitations General Appearance: Alert, No Apparent Distress Ears: Normal External Exam Nose: Normal Inspection Head: Atraumatic, Normocephalic Neck: Normal Inspection Respiratory/Chest: No Respiratory Distress, Lungs Clear, Normal Breath Sounds Cardiovascular: Regular Rate, Rhythm, No Edema, No Murmur GI/Abdominal Exam: Soft, No Organomegaly, No Mass, Tender (Mild tenderness to the lower abdomen) Course - Vital Signs Last Recorded V/S: Last Vital Signs Temp 96.4 F L 09/19/20 07:32 Pulse 106 H 09/19/20 07:32 Resp 16 09/19/20 07:32 BP 147/96 H 09/19/20 07:32 Pulse Ox 92 L 09/19/20 07:32 - Orders/Labs/Meds Labs: Laboratory Tests 09/19/20 Range/Units 07:35 Urine Color Yellow (Yellow) Urine Appearance Clear (Clear) Urine pH 7.0 (5.0-8.0) Ur Specific [place] 1.015 (1.005-1.030) Urine Protein Negative (Negative) Urine Glucose (UA) Negative (Negative) Urine Ketones Negative (Negative) Urine Occult Blood Negative (Negative) Urine Nitrite Positive H (Negative) Urine Bilirubin Negative (Negative) Urine Urobilinogen 0.2 (0.2-1.0) Ur Leukocyte Esterase 3+ H (Negative) Urine RBC 0-5 (0-5) /hpf Urine WBC 10-20 H (0-5) /hpf Ur Squamous Epith Cells 0-5 (0-5) /hpf Urine Bacteria Moderate H (FEW) /hpf Urine Mucus Rare (FEW) /hpf - Re-Assessments/Exams Free Text/Narrative Re-Assessment/Exam: 09/19/20 08:07 I ordered a UA and it appears she has a UTI. I will give her a shot of rocephin and a prescription for some keflex. Departure - Departure Time of Disposition: 08:15 Disposition: Home, Self-Care 01 Condition: Good Clinical Impression: UTI (urinary tract infection) Qualifiers: Urinary tract infection type: site unspecified Hematuria presence: without hematuria Qualified Code(s): N39.0 - Urinary tract infection, site not specified - Discharge Information *PRESCRIPTION DRUG MONITORING PROGRAM REVIEWED*: Not Applicable *COPY OF PRESCRIPTION DRUG MONITORING REPORT IN PATIENT CLAY: Not Applicable Prescriptions: cephALEXin [Keflex] 500 mg PO BID #10 cap Referrals: Milagros Hutton MD [Primary Care Provider] - 1 Week Additional Instructions: Drink plenty of fluids. Take tylenol or motrin for pain. Take the keflex 2 times per day for 5 days. Follow up with your doctor. Please return if you are worse. Sepsis Event Note (ED) - Evaluation Sepsis Screening Result: No Definite Risk - Focused Exam Vital Signs: Vital Signs Temp Pulse Resp BP Pulse Ox 09/19/20 07:32 96.4 F L 106 H 16 147/96 H 92 L
== END 2020-09-19 08:20 | disposition home or self-care (01) ==
LOC: SUPCPDRO 07:23 → JD.ED 07:23
DX: N39.0 Urinary tract infection, site not specified (principal); I10 Essential (primary) hypertension; E66.9 Obesity, unspecified; Z68.28 Body mass index [BMI] 28.0-28.9, adult
CPT/HCPCS: 81001; 96372; 99284; J0696; 99283